=== PATIENT | male | born 1970 | race Caucasian/White ===

== ENCOUNTER 2018-02-09 12:28 | Outpatient (CLI) | payer OTHER ==
--- NOTE | 2018-02-10 16:28 | MRI Report ---
Reason: PAIN IN RIGHT KNEE Procedure Date: 02/09/2018 Accession Number: [id number] / [id number] Procedure: MRI - Knee RT W/O CPT Code: FULL RESULT: EXAM: RIGHT KNEE MRI WITHOUT CONTRAST. EXAM DATE: 02/09/2018 01:39 PM. CLINICAL HISTORY: Right knee pain. COMPARISON: None. TECHNIQUE: Multiplanar, multisequence T1-weighted and fluid-sensitive sequences of the knee without contrast. Other: None. FINDINGS: Bones: No fractures. Minimal tibiofemoral osteophytes are present. No marrow edema. Articular Cartilage: The patellofemoral and lateral compartment articular cartilage is intact. There is severe cartilage thinning from the medial compartment. Medial Meniscus: 2 parrot-beak tears are seen in the inner margin of the posterior horn of the medial meniscus. Lateral Meniscus: The lateral meniscus is intact. Cruciate Ligaments: The anterior and posterior cruciate ligaments are intact. Collateral Ligaments: The medial collateral and lateral collateral ligamentous structures are intact. Tendons: The quadriceps, patellar, semimembranosus, and popliteus tendons are unremarkable. Musculature: No edema or fatty atrophy. Other: No effusion. No popliteal cyst. No loose bodies. The medial and lateral retinacula are intact. Prepatellar subcutaneous edema is present. IMPRESSION: 1. Minimal osteoarthritis. 2. Two parrot-beak tears at the inner margin of the posterior horn of the medial meniscus. [facility] MUSCULOSKELETAL RADIOLOGY SECTION
== END 2018-02-09 12:29 | disposition home or self-care (01) ==
LOC: DI 12:28
PROVIDERS: ATTEND Family Medicine
DX: M17.11 Unilateral primary osteoarthritis, right knee (principal); S83.241A Other tear of medial meniscus, current injury, right knee, initial encounter

== ENCOUNTER 2019-08-02 09:49 | Emergency (ER) | payer OTHER ==
--- NOTE | 2019-08-02 10:00 | ED Physician Documentation ---
PD HPI HEADACHE - Stated complaint Stated Complaint: URIARTE - Chief complaint Chief Complaint: Neuro - History obtained from History obtained from: Patient - History of Present Illness Timing - onset: How many days ago (2) Timing - onset during: Light activity Timing - duration: Days (2) Timing - details: Gradual onset, Waxing and waning Worst headache ever?: No: Worst headache ever? Location: Front, Global Quality: Throbbing. No: Thunderclap, Stabbing Associated symptoms: Other (some feeling of chest pressure substernal yesterday and today, nonexertional. No CP now. Noted his BP to quite elevated at 210/130 today. Typically runs a little high at 150-180 when randomly checks it. lowest is around 130 systolic. No current meds for BP. Started Meloxicam a week ago for knee pain.). No: Fever, Nausea, Vomiting, Weakness, Numbness, Vision changes Contributing factors: Hypertension (states blood pressure is slightly high often when checks it (randomly at store or in doctors office, sometimes at home). Typically when well, it is 130-160 systolic, more often 150-160. Today had noted it much higher, but was having the throbbing headache.). No: Recent illness Similar symptoms before: Has not had sx before Recently seen: Clinic (seen for knee pain and Rx Meloxicam, which he started the day prior to onset of the headache. He had taken Meloxicam previously last year but ended use Jan 2019. Had taken Ibuprofen fairly regularly in the past couple months, so PMD went for the Mob again.) Review of Systems Constitutional: denies: Fever, Chills Eyes: denies: Loss of vision, Decreased vision, Photophobia Nose: denies: Rhinorrhea / runny nose, Congestion Throat: denies: Sore throat Respiratory: denies: Cough GI: reports: Nausea (with belching and heartburn the past couple days). denies: Vomiting, Diarrhea, Bloody / black stool Neurologic: reports: Generalized weakness, Headache. denies: Focal weakness, Numbness, Altered mental status, Head injury PD PAST MEDICAL HISTORY - Past Medical History Cardiovascular: None Respiratory: None Endocrine/Autoimmune: None - Past Surgical History Past Surgical History: Yes - Present Medications Home Medications: Ambulatory Orders Medication Instructions Recorded Confirmed Hydrocodone/Acetaminophen [[place] 1 each PO Q6H PRN #15 tablet 02/16/15 5-325 Tablet] Ibuprofen 600 mg PO TID #15 tablet 02/16/15 Hydrocodone/Acetaminophen [[place] 1 each PO Q6H PRN #15 tablet 08/02/19 5-325 Tablet] Naproxen 375 mg PO BID #20 tablet 08/02/19 dexAMETHasone [Decadron] 4 mg PO DAILY #5 tablet 08/02/19 - Allergies Allergies/Adverse Reactions: Allergies Allergy/AdvReac Type Severity Reaction Status Date / Time No Known Drug Allergies Allergy Verified 08/02/19 09:52 - Social History Does the pt smoke?: No Smoking Status: Current every day smoker Does the pt drink ETOH?: No Does the pt have substance abuse?: No - Immunizations Immunizations are current?: Yes - POLST Patient has POLST: No PD ED PE NORMAL - Vitals Vital signs reviewed: Yes - General General: Alert and oriented X 3, No acute distress (slightly uncomfrtable due to headache.), Well developed/nourished - HEENT HEENT: Atraumatic, PERRL, EOMI (fundi appear normal), Pharynx benign - Neck Neck: Supple, no meningeal sign, No adenopathy - Cardiac Cardiac: RRR, No murmur - Respiratory Respiratory: Clear bilaterally - Abdomen Abdomen: Soft, Non tender - Derm Derm: Normal color, Warm and dry - Extremities Extremities: No deformity, No tenderness to palpate, No edema, No calf tenderness / cord - Neuro Neuro: Alert and oriented X 3, teletypesetter 2-12 intact, No motor deficit, No sensory deficit, Normal speech, Other Eye Opening: Spontaneous Motor: Obeys Commands Verbal: Oriented GCS Score: 15 Results - Vitals Vitals: Vital Signs - 24 hr 08/02/19 08/02/19 08/02/19 09:53 12:00 14:23 Temperature 36.7 C Heart Rate 72 65 62 Respiratory 18 22 20 Rate Blood Pressure 165/108 H 160/96 H 120/91 H O2 Saturation 98 98 96 Oxygen O2 Source Room air - EKG (time done) 10:00 Rate: Rate (enter#) (66) Rhythm: NSR [place]: Normal Intervals: Normal ME QRS: Normal Ischemia: Normal ST segments. No: ST elevation c/w ischemia, ST depression - Labs Labs: Laboratory Tests 05/08/02/19 08/02/19 10:45 10:45 10:45 WBC 12.4 H RBC 5.04 Hgb 16.4 Hct 47.7 MCV 94.6 H MCH 32.5 H MCHC 34.4 RDW 11.8 L Plt Count 206 MPV 11.8 H Neut # (Auto) 9.3 H Lymph # (Auto) 1.8 Lares # (Auto) 1.2 H Eos # (Auto) 0.0 Baso # (Auto) 0.0 Absolute Nucleated RBC 0.00 Nucleated RBC % 0.0 Sodium 136 Potassium 3.7 Chloride 103 Carbon Dioxide 25 Anion Gap 8.0 BUN 18 Creatinine 0.9 Estimated GFR (MDRD) 90 Glucose 146 H Calcium 9.0 Total Bilirubin 0.8 AST 27 ALT 70 H Alkaline Phosphatase 61 Troponin I High Sens 4.2 B-Natriuretic Peptide Total Protein 7.3 Albumin 4.1 Globulin 3.2 Albumin/Globulin Ratio 1.3 Lipase 31 08/02/19 10:45 WBC RBC Hgb Hct MCV MCH MCHC RDW Plt Count MPV Neut # (Auto) Lymph # (Auto) Lares # (Auto) Eos # (Auto) Baso # (Auto) Absolute Nucleated RBC Nucleated RBC % Sodium Potassium Chloride Carbon Dioxide Anion Gap BUN Creatinine Estimated GFR (MDRD) Glucose Calcium Total Bilirubin AST ALT Alkaline Phosphatase Troponin I High Sens B-Natriuretic Peptide 48 Total Protein Albumin Globulin Albumin/Globulin Ratio Lipase - Rads (name of study) chest xray Radiology: Prelim report reviewed (normal), See rad report head CT Radiology: Prelim report reviewed (no acute process), See rad report PD MEDICAL DECISION MAKING - ED course Complexity details: considered differential (initially thinking tension headache or such or hypertensive, but BP decreased with just pain meds and headache persists. Epocrates lists headache and edema as potential serious side effects of Meloxicam, so did CT to ensure no signs of edema, enlarged ventricles (pseudotumor cerebri), or other headache causes. This was normal. Otherwise normal exam and workup, so presume the headache is side effect of the Mobic, given the onset a day after starting the med. Presume it will taper over few days. The chest pain I think was reflux and not cardiac. ), d/w patient Departure - Departure Disposition: 01 Home, Self Care Clinical Impression: Chest discomfort, Side effect of medication, Severe headache Condition: Stable Record reviewed to determine appropriate education?: Yes Instructions: ED Cephalgia Unspecified Follow-Up: BRENDA GRAJEDA DO [Primary Care Provider] - Prescriptions: dexAMETHasone [Decadron] 4 mg PO DAILY #5 tablet Hydrocodone/Acetaminophen [[place] 5-325 Tablet] 1 each PO Q6H PRN #15 tablet PRN Reason: Pain Naproxen 375 mg PO BID #20 tablet Comments: Lacking another good reason for the headache, I would associate it timing ordoñez with the start of your meloxicam. A medication reference called HippocrThink2 does list it as a is more serious side effect potentially to the meloxicam. Stop the meloxicam. Use Tylenol if needed for pains instead. We can add Decadron steroid anti-inflammatory for a few days as well to help with your arthritis kind of pain and decrease the side effects of the headache. Add Tylenol or hydrocodone if needed for headache. No signs of heart failure or heart injury based on your blood tests and EKG. This might of been some heartburn related to the meloxicam as well. Use antacid if needed. If you are feeling improved over the next several days, then you could start a different anti-inflammatory such as naproxen. Follow-up with your primary care if not improved over the next 2 to 3 days and return sooner if worsening. Discharge Date/Time: 08/02/19 14:29
[2019-08-02] MEDS ORDERED: ACETAMINOPHEN 325 MG TABLET PO STA (10:35)
[2019-08-02] MEDS ORDERED: KETOROLAC 30 MG/ML VIAL IVP STA (10:35)
[2019-08-02 11:02] LABS: BASOPHILS % (AUTO) 0.2 %; EOSINOPHILS % (AUTO) 0.2 %; HGB - HEMOGLOBIN 16.4 g/dL (14.0-18.0); LYMPHOCYTES # (AUTO) 1.8 10^3/uL (1.5-3.5); LYMPHOCYTES % (AUTO) 14.6 %; MEAN CORPUSCULAR HEMOGLOBIN 32.5 pg (27.0-31.0); MEAN CORPUSCULAR HGB CONC 34.4 g/dL (32.0-36.0); MEAN CORPUSCULAR VOLUME 94.6 fL (80.0-94.0); MEAN PLATELET VOLUME 11.8 fL (7.4-11.4); MONOCYTES # (AUTO) 1.2 10^3/uL (0.0-1.0); MONOCYTES % (AUTO) 9.3 %; NEUTROPHILS # (AUTO) 9.3 10^3/uL (1.5-6.6); NEUTROPHILS % (AUTO) 75.1 %; PLT - PLATELET COUNT 206 10^3/uL (130-450); RED BLOOD COUNT 5.04 10^6/uL (4.70-6.10); RED CELL DISTRIBUTION WIDTH 11.8 % (12.0-15.0); WHITE BLOOD COUNT 12.4 x10^3/uL (4.8-10.8)
[2019-08-02 11:28] LABS: ALBUMIN 4.1 g/dL (3.2-5.5); ALBUMIN/GLOBULIN RATIO 1.3 (1.0-2.2); BILIRUBIN,TOTAL 0.8 mg/dL (0.2-1.0); CREATININE 0.9 mg/dL (0.6-1.2); TOTAL PROTEIN 7.3 g/dL (6.7-8.2)
--- NOTE | 2019-08-02 11:30 | XRAY Report ---
Reason: Chest Pain Procedure Date: 08/02/2019 Accession Number: [id number] / [id number] Procedure: XR - Chest 1 View X-Ray CPT Code: 59691 Final Report FULL RESULT: EXAM: CHEST RADIOGRAPHY EXAM DATE: 08/02/2019 10:57 AM. CLINICAL HISTORY: Chest Pain. COMPARISON: None. TECHNIQUE: 1 view. FINDINGS: Lungs/Pleura: No focal opacities evident. No pleural effusion. No pneumothorax. Mediastinum: Within exam limitations, the cardiomediastinal contour is normal. Other: Variant azygos fissure anatomy is seen. IMPRESSION: No acute cardiopulmonary abnormality demonstrated. [facility]
[2019-08-02] MEDS ORDERED: HYDROmorphone 1 MG/ML CARPUJECT IVP STA ×2 (12:00→13:56)
--- NOTE | 2019-08-02 13:34 | CT Report ---
Reason: throbbing headache for 2 days Procedure Date: 08/02/2019 Accession Number: [id number] / [id number] Procedure: CT - HEAD WO CPT Code: Final Report FULL RESULT: EXAM: CT HEAD EXAM DATE: 08/02/2019 12:47 PM. CLINICAL HISTORY: Throbbing headache for 2 days. COMPARISON: None. TECHNIQUE: Multiaxial CT images were obtained from the foramen magnum to the vertex. Reformats: Sagittal and coronal. IV contrast: None. In accordance with CT protocol optimization, one or more of the following dose reduction techniques were utilized for this exam: automated exposure control, adjustment of mA and/or KV based on patient size, or use of iterative reconstructive technique. FINDINGS: Parenchyma: No intraparenchymal hemorrhage. No evidence of mass, midline shift, or CT findings of acute infarction. Meadows-white differentiation is distinct. Extraaxial Spaces: Normal for age. No subdural or epidural collections identified. Ventricles: Normal in size and position. Sinuses and Orbits: Imaged paranasal sinuses, orbits, and mastoids show no significant abnormality. Bones: No evidence of fracture or calvarial defect. Other: None. IMPRESSION: Normal head CT. [facility]
[2019-08-02] MEDS ORDERED: DEXAMETHASONE 10 MG/ML VIAL IVP STA (13:56)
[2019-08-02 14:24] VITALS: BP 120/91
== END 2019-08-02 14:29 | disposition home or self-care (01) ==
LOC: ED 09:49
DX: R07.89 Other chest pain (principal); R51 Headache; T39.395A Adverse effect of other nonsteroidal anti-inflammatory drugs [NSAID], initial encounter; F17.200 Nicotine dependence, unspecified, uncomplicated
CPT/HCPCS: 36415; 70450; 71045; 80053; 83690; 83880; 84484; 85025; 93005; 96374; 96375; 99284; A9270; J1170

== ENCOUNTER 2019-11-11 07:29 | Day surgery (SDC) | payer OTHER ==
[2019-11-11] MEDS ORDERED: CEFAZOLIN SODIUM IN 0.9 % NACL 2 GM/100 ML BAG IV ONE (07:34)
[2019-11-11] MEDS ORDERED: LACTATED RINGERS 1,000 ML IV ONE ×2 (07:54→10:22)
[2019-11-11] MEDS ORDERED: EPINEPHrine 1 MG/ML AMP ONE (08:11)
[2019-11-11] MEDS ORDERED: BUPIVACAINE 0.25% PF 30 ML VIAL ONE (08:11)
[2019-11-11] MEDS ORDERED: ONDANSETRON 4 MG/2 ML VIAL IVP ONE (08:15)
[2019-11-11] MEDS ORDERED: DEXAMETHASONE 4 MG/ML VIAL IVP ONE (08:15)
[2019-11-11] MEDS ORDERED: PROPOFOL 200 MG/20 ML VIAL IVP ONE (08:15)
[2019-11-11] MEDS ORDERED: MIDAZOLAM 2 MG/2 ML VIAL IVP ONE (08:15)
[2019-11-11] MEDS ORDERED: fentaNYL 100 MCG/2 ML VIAL IVP ONE (08:15)
[2019-11-11] MEDS ORDERED: LIDOCAINE-MPF 2% 5 ML VIAL IM ONE (08:15)
--- NOTE | 2019-11-11 08:19 | ANESTHESIA ---
Pre-Anesthesia VS, & Labs - Diagnosis Right knee meniscus tear - Procedure right knee arthroscopy, meniscus debridement Vital Signs: Temp Pulse Resp BP Pulse Ox 36.3 C L 82 16 133/104 H 97 11/11/19 07:34 11/11/19 07:34 11/11/19 07:34 11/11/19 07:34 11/11/19 07:34 Height 5 ft 10 in Weight (kg) 112.94 kg Body Mass Index 36.6 - NPO >8 hours - Lab Results Lab results reviewed: Yes Home Medications and Allergies Home Medications: Ambulatory Orders Diclofenac Sodium [Voltaren] 100 gm TP 10/15/19 Fluticasone [Flonase] 1 sprays NAVARRO DAILY 10/15/19 Loratadine [Claritin] 10 mg PO DAILY 10/15/19 Omeprazole 20 mg PO 10/15/19 Diclofenac Sodium [Voltaren] 100 gm TP 10/15/19 Fluticasone [Flonase] 1 sprays NAVARRO DAILY 10/15/19 Loratadine [Claritin] 10 mg PO DAILY 10/15/19 Omeprazole 20 mg PO 10/15/19 Allergies/Adverse Reactions: Allergies Allergy/AdvReac Type Severity Reaction Status Date / Time meloxicam [From Mobic] AdvReac Intermediate Unknown Verified 10/15/19 13:16 Anes History & Medical History - Anesthetic History Family history of Anesthesia Complications: Denies Family history of Malignant Hyperthermia: Denies - Medical History Cardiovascular: reports: None Pulmonary: reports: None, Sleep apnea (probable BERNY) Gastrointestinal: reports: GERD, Other Urinary: reports: None Musculoskeletal: reports: Other Endocrine/Autoimmune: reports: None Skin: reports: None Smoking Status: Light tobacco smoker Exam General: Alert, Oriented x3, Cooperative, No acute distress Dental: Poor dentition (multiple chipped) Mouth Openin Fingerbreadth Neck Mobility: Normal Mallampati classification: II Respiratory: Lungs clear, Normal breath sounds, No respiratory distress, No accessory muscle use Cardiovascular: Regular rate, Normal S1, Normal S2, No murmurs Plan Anesthesia Type: General, Adductor Block (discussed PNB in event of uncontrolled pain. Patient agreeable if needed post op) Consent for Procedure(s) Verified and Reviewed: Yes Code Status: Attempt Resuscitation ASA classification: 2-Mild systemic disease Is this case an emergency?: No
[2019-11-11] MEDS ORDERED: METOCLOPRAMIDE 10 MG/2 ML VIAL IVP PRN (08:20)
[2019-11-11] MEDS ORDERED: ATROPINE ABBOJECT 1 MG/10 ML SYRINGE IVP PRN (08:20)
[2019-11-11] MEDS ORDERED: MORPHINE 2 MG/ML CARPUJECT IVP PRN (08:20)
[2019-11-11] MEDS ORDERED: NALOXONE 0.4 MG/ML VIAL IVP PRN (08:20)
[2019-11-11] MEDS ORDERED: ePHEDrine 50 MG/ML VIAL IVP PRN (08:20)
[2019-11-11] MEDS ORDERED: ONDANSETRON 4 MG/2 ML VIAL IVP PRN ×2 (08:20→09:54)
[2019-11-11] MEDS ORDERED: HYDROmorphone 0.5 MG/0.5 ML SYRINGE IVP PRN (08:20)
[2019-11-11] MEDS ORDERED: BUPIVACAINE 0.25% PF 30 ML VIAL SUBQ ONE (08:59)
[2019-11-11] MEDS ORDERED: LACTATED RINGERS 1,000 ML IV SCH (09:00)
[2019-11-11] MEDS ORDERED: EPINEPHrine 1 MG/ML AMP IR ONE (09:00)
[2019-11-11] MEDS ORDERED: LACTATED RINGERS 300 ML IV ONE (09:52)
[2019-11-11] MEDS ORDERED: oxyCODONE 5 MG TABLET PO PRN (09:54)
[2019-11-11] MEDS: fentaNYL 100 MCG/2 ML VIAL IVP PRN ×2 (09:55→10:05)
[2019-11-11] MEDS ORDERED: fentaNYL 100 MCG/2 ML VIAL ONE (10:04)
--- NOTE | 2019-11-11 10:04 | OPERATIVE REPORT ---
Operative Report - Other Other Information/Narrative: Date of Surgery: 11 November 2019 Pre-Op Diagnosis: Right knee medial meniscus tear. Right knee arthritis Procedure: Right knee arthroscopic chondroplasty of the trochlea, medial femoral condyle, medial tibial plateau, lateral tibial plateau. Arthroscopic medial meniscus debridement Postop Diagnosis: Same Primary Surgeon: Eladio Lu Secondary Surgeon: Nicholas Benjamin Complications: None Tourniquet Time: 48 minutes at 250 mmHg EBL: 5 mL Indication For Surgery: 49-year-old male with many years of aching medial knee pain that acutely worsened over the last year and a half after an injury. He has sharp medial sided pain that is activity and position dependent. An MRI showed a large meniscus tear as well as degenerative changes. We discussed that his pain may be associated with a meniscus tear as well as arthritis. The meniscus tear itself may be secondary to his arthritis. We discussed nonoperative and operative treatment strategies and after failing nonoperative treatment he elected for surgery to help improve his symptoms.. The risks, benefits, and alternatives were discussed. Risks include pain, bleeding, infection, damage to nearby structures and cartilage, lack of symptom relief, need for further surgery, DVT, PE, stroke, and . Written consent was obtained. Examination Under Anesthesia: ROM equal to the contralateral side. Small effusion is present. Stable dial at 30 & 90 degrees. Stable to varus and valgus stressing at 0 & 30 degrees. Normal Edgard. Normal Pivot shift. Slight mechanical sensation with range of motion Arthroscopic Findings: Loose bodies -none Synovium -injected and exuberant fat pad Patella cartilage -slightly mottled but no significant cartilage lesions Trochlear cartilage -3 to 5 mm wide by 15 mm long full-thickness lesion centrally Medial femoral condyle cartilage -the majority of the condyle had grade 2-3 changes with some focal grade 4 changes of the large sections. Unstable flaps were debrided. Medial tibial plateau cartilage -grade 2-3 changes over large portions of the plateau. Unstable flaps were debrided Medial meniscus -root was intact. Complex tear of the posterior horn and body with a radial component that went back near the capsule at the junction of the p osterior horn of the body. The anterior horn is unaffected. This was debrided back to a stable base with smooth transitions Anterior cruciate ligament -normal Posterior cruciate ligament -normal Lateral femoral condyle cartilage -normal Lateral tibial plateau cartilage -linear fissuring with softening but largely intact. A small unstable portion was debrided Lateral meniscus -normal Procedure in Detail: The patient was met in the pre-operative hold area on the day of the procedure. The operative extremity was signed and questions were answered. The patient was brought to the operating room and a general anesthetic was administered. Supine position was used and bony prominences were padded. An examination under anesthesia was performed. Standard prepping and draping was performed. A time out confirmed patient identification, laterality, procedure, allergies, antibiotics, and images. An Esmarch was used to exsanguinate the limb and the tourniquet was elevated to 250 mmHg. A standard diagnostic arthroscopy of the knee was performed through anterolateral and anteromedial portal sites. The anteromedial portal was created under direct visualization after localizing with a spinal needle. The findings can be found above. I then proceeded to use a straight biter to debride back unstable flaps of cartilage. A shaver was then used to smooth the transitions. Chondroplasty was performed in the patellofemoral joint as well as both the medial and lateral yadi-joints. I then used a biter to debride all unstable flaps of the meniscus back to stable basis. The shaver was then used to smooth all transitions. I viewed from both the medial and lateral portal site and worked from both the medial and lateral portal site. Satisfied with the debridement final images were taken. Final images were taken and all arthroscopic fluid and instruments were removed from the knee. The incisions were closed with buried monocryl sutures. Steri strips were applied. 20 cc of 0.25% Marcaine without epinephrine was injected near the portal sites. A sterile dressing and compression stocking was placed. The patient was awakened and transferred to recovery in stable condition.
[2019-11-11] MEDS ORDERED: HYDROmorphone 0.5 MG/0.5 ML SYRINGE ONE (10:14)
[2019-11-11] MEDS ORDERED: ONDANSETRON 4 MG/2 ML VIAL ONE (10:47)
[2019-11-11] MEDS ORDERED: oxyCODONE 5 MG TABLET ONE (11:07)
--- NOTE | 2019-11-11 11:21 | ANESTHESIA POST OP EVALUATION ---
Anesthesia Post Eval - Post Anesthesia Eval Vitals: Last Vital Signs Temp 36.7 C 11/11/19 11:00 Pulse 77 11/11/19 11:00 Resp 18 11/11/19 11:00 BP 128/84 H 11/11/19 11:00 Pulse Ox 98 11/11/19 11:00 CV Function Including HR & BP: positive: Stable Pain Control: positive: Satisfactory Nausea & Vomiting: positive: Negative Mental Status: positive: Baseline Respiratory Status: Airway Patent Hydration Status: Satisfactory Anesthesia Complications: positive: None
[2019-11-11 11:57] VITALS: BP 130/80
== END 2019-11-11 07:30 | disposition home or self-care (01) ==
LOC: SDS 07:29
PROVIDERS: ATTEND Orthopaedic Surgery
DX: M23.221 Derangement of posterior horn of medial meniscus due to old tear or injury, right knee (principal); M94.261 Chondromalacia, right knee; K21.9 Gastro-esophageal reflux disease without esophagitis; G47.30 Sleep apnea, unspecified; F17.200 Nicotine dependence, unspecified, uncomplicated; M17.11 Unilateral primary osteoarthritis, right knee

== ENCOUNTER 2020-04-20 06:20 | Emergency (ER) | payer OTHER ==
[2020-04-20] MEDS ORDERED: KETOROLAC 30 MG/ML VIAL IVP STA (06:56)
--- NOTE | 2020-04-20 07:17 | ED Physician Documentation ---
PD HPI URI - Stated complaint Stated Complaint: NAUSEA,LIGHT HEADED - Chief complaint Chief Complaint: Neuro - History obtained from History obtained from: Patient - History of Present Illness Timing - onset: How many days ago (4) Timing duration: Days (4) Timing details: Gradual onset, Still present Associated symptoms: Fever (mild, up to 100.5, varying over the few days.), Sore throat, Dry cough, Other (frontal/general headache.). No: Productive cough, Dyspnea, NVD Contributing factors: Other (He had been feeling ill for several days. He took his blood pressure today at home and noticed it was elevated and so was concerned.). No: Sick contact (His and daughter at home are feeling well without any similar symptoms. They do have a propane space heater at home but it is next to a carbon monoxide monitor that has not alarmed and his family members do not have similar symptoms.) Improves by: Medication (tylenol) Worsened by: Activity Recently seen: Clinic (He states he had a Covid test yesterday that was negative which she had done because of his viral type symptoms.) Review of Systems Constitutional: reports: Fever, Chills, Myalgias Nose: reports: Congestion. denies: Rhinorrhea / runny nose Throat: reports: Sore throat Cardiac: denies: Chest pain / pressure Respiratory: reports: Cough (mild nonproductive). denies: Dyspnea, Wheezing GI: reports: Nausea. denies: Abdominal Pain, Vomiting, Diarrhea Musculoskeletal: denies: Extremity swelling Neurologic: reports: Generalized weakness, Headache. denies: Focal weakness, Near syncope, Confused, Altered mental status PD PAST MEDICAL HISTORY - Past Medical History Cardiovascular: None (He has had elevated blood pressure in the past related to NSAID use of meloxicam. This improved once off the medicine. He has not been on any blood pressure medicines per se.) Respiratory: None, Sleep apnea (probable BERNY) Endocrine/Autoimmune: None GI: GERD, Other : None HEENT: None Psych: None Musculoskeletal: Other Derm: None - Past Surgical History Past Surgical History: Yes - Present Medications Home Medications: Ambulatory Orders Medication Instructions Recorded Confirmed Ibuprofen 600 mg PO TID #15 tablet 02/16/15 Cetirizine [ZyrTEC] 10 mg PO DAILY #15 tab 04/20/20 HYDROcod/ACETAM 5/325 [[place] 5/325] 1 ea PO Q6H PRN #18 tab 04/20/20 cephALEXin [Keflex] 500 mg PO TID #20 cap 04/20/20 dexAMETHasone [Decadron] 4 mg PO DAILY #5 tab 04/20/20 traMADol [Ultram] 100 mg PO Q6H 04/20/20 04/20/20 - Allergies Allergies/Adverse Reactions: Allergies Allergy/AdvReac Type Severity Reaction Status Date / Time meloxicam [From Mobic] AdvReac Intermediate Unknown Verified 10/15/19 13:16 - Living Situation Living Situation: reports: With spouse/s.o. Living Arrangement: reports: At home - Social History Does the pt smoke?: No Smoking Status: Light tobacco smoker Does the pt drink ETOH?: No Does the pt have substance abuse?: No - Immunizations Immunizations are current?: Yes - POLST Patient has POLST: No PD ED PE NORMAL - Vitals Vital signs reviewed: Yes - General General: Alert and oriented X 3, No acute distress, Well developed/nourished - HEENT HEENT: Moist mucous membranes, Pharynx benign - Neck Neck: Supple, no meningeal sign, No adenopathy - Cardiac Cardiac: RRR, No murmur - Respiratory Respiratory: Clear bilaterally - Abdomen Abdomen: Soft, Non tender - Male Male : Deferred - Rectal Rectal: Deferred - Derm Derm: Normal color, Warm and dry - Extremities Extremities: Normal ROM s pain, No edema, No calf tenderness / cord, Other (left forearm with small waxy skinned lesion 1 cm on forearm. No purulence nor induration under. ) - Neuro Neuro: Alert and oriented X 3, No motor deficit, Normal speech Results - Vitals Vitals: Vital Signs - 24 hr 04/20/20 04/20/20 06:30 07:53 Temperature 36.9 C Heart Rate 81 70 Respiratory 18 18 Rate Blood Pressure 163/106 H 154/95 H O2 Saturation 96 97 Oxygen O2 Source Room air - Labs Labs: Laboratory Tests 04/20/20 04/20/20 04/20/20 07:28 07:28 07:28 WBC 5.4 RBC 5.08 Hgb 16.6 Hct 47.5 MCV 93.5 MCH 32.7 H MCHC 34.9 RDW 11.5 L Plt Count 167 MPV 11.4 Neut # (Auto) 3.0 Lymph # (Auto) 1.4 L [place] # (Auto) 0.7 Eos # (Auto) 0.3 Baso # (Auto) 0.0 Absolute Nucleated RBC 0.00 Nucleated RBC % 0.0 Sodium 142 Potassium 3.8 Chloride 98 L Carbon Dioxide 27 Anion Gap 17.0 H BUN 13 Creatinine 1.0 Estimated GFR (MDRD) 79 L Glucose 129 H Lactic Acid 2.0 Calcium 9.7 Total Bilirubin 0.9 AST 36 ALT 60 Alkaline Phosphatase 59 Total Protein 7.4 Albumin 4.1 Globulin 3.3 Albumin/Globulin Ratio 1.2 - Rads (name of study) chest xray Radiology: Prelim report reviewed (no infiltrates), See rad report head CT Radiology: Prelim report reviewed (no acute process intracranial; There is ethmoid sinusitis. ), See rad report PD MEDICAL DECISION MAKING - ED course Complexity details: reviewed results (Chest xray negative. head CT not showing any local lesions. There is sinusitis noted on report. ), re-evaluated patient (improving headache and BP. ), considered differential (He has viral illness type sympotms. States negative COVID test yesterday. Has headache and low fevers. Does not appear meningitic. Does not appear significantly ill. BP elevated but at level that seems more likely reactive to illness and not primarily causing headache. Can check CBC, CXR. ), d/w patient Departure - Departure Disposition: 01 Home, Self Care Clinical Impression: Acute sinusitis Qualifiers: Sinusitis location: ethmoidal Recurrence: non-recurrent Qualified Code(s): J01.20 - Acute ethmoidal sinusitis, unspecified URI (upper respiratory infection) Qualifiers: Pharyngitis/tonsillitis etiology: unspecified etiology Condition: Stable Record reviewed to determine appropriate education?: Yes Instructions: ED Sinusitis Abx Tx Follow-Up: BRENDA GRAJEDA DO [Primary Care Provider] - Prescriptions: dexAMETHasone [Decadron] 4 mg PO DAILY #5 tab cephALEXin [Keflex] 500 mg PO TID #20 cap HYDROcod/ACETAM 5/325 [[place] 5/325] 1 ea PO Q6H PRN #18 tab PRN Reason: Pain Cetirizine [ZyrTEC] 10 mg PO DAILY #15 tab Comments: Your blood count is good. Your electrolytes and blood sugar are normal without any significant findings. Your CT scan showed no intracranial process but they did note ethmoidal sinusitis. Your chest x-ray does not show any pneumonia. At this point presume some viral type illness may have been initial but now it seems to be likely acute sinusitis for your symptoms. Cephalexin antibiotic as directed for the infection. Decadron steroid daily for inflammation through the sinuses. Stay well-hydrated. Cetirizine antihistamine to help with any congestion. Add Tylenol or hydrocodone as needed for headache and pain. However dissipate improvement over the next several days. Rest today and tomorrow as needed. Recheck if not improved well over the next several days and resolved by 4 to 5 days or so. Forms: Activity restrictions
--- NOTE | 2020-04-20 07:29 | CT Report ---
PROCEDURE: HEAD WO INDICATIONS: headache and feverish for 4 days TECHNIQUE: Noncontrast 4.5 mm thick angled axial sections acquired from the foramen magnum to the vertex. For r adiation dose reduction, the following was used: automated exposure control, adjustment of mA and/or kV according to patient size. COMPARISON: None. FINDINGS: Image quality: Excellent. CSF spaces: Basal cisterns are patent. No extra-axial fluid collections. Ventricles are normal in size and shape. Brain: No midline shift. No intracranial masses or hemorrhage. Meadows-white matter interface is norm al. Skull and face: Calvarium and visualized facial bones are intact, without suspicious lesions. Sinuses: Visualized sinuses and mastoids are clear. IMPRESSION: No acute intracranial disease process. Reviewed by: Christen Wilson MD, PhD on 04/20/2020 7:28 AM PST Approved by: Christen Wilson MD, PhD on 04/20/2020 7:28 AM PST Station ID: [id number]
[2020-04-20 07:52] LABS: BASOPHILS % (AUTO) 0.6 %; EOSINOPHILS # (AUTO) 0.3 10^3/uL (0.0-0.7); EOSINOPHILS % (AUTO) 4.7 %; HGB - HEMOGLOBIN 16.6 g/dL (14.0-18.0); LYMPHOCYTES # (AUTO) 1.4 10^3/uL (1.5-3.5); LYMPHOCYTES % (AUTO) 26.5 %; MEAN CORPUSCULAR HEMOGLOBIN 32.7 pg (27.0-31.0); MEAN CORPUSCULAR HGB CONC 34.9 g/dL (32.0-36.0); MEAN CORPUSCULAR VOLUME 93.5 fL (80.0-94.0); MEAN PLATELET VOLUME 11.4 fL (7.4-11.4); MONOCYTES # (AUTO) 0.7 10^3/uL (0.0-1.0); MONOCYTES % (AUTO) 12.1 %; NEUTROPHILS % (AUTO) 55.9 %; PLT - PLATELET COUNT 167 10^3/uL (130-450); RED BLOOD COUNT 5.08 10^6/uL (4.70-6.10); RED CELL DISTRIBUTION WIDTH 11.5 % (12.0-15.0); WHITE BLOOD COUNT 5.4 x10^3/uL (4.8-10.8)
[2020-04-20 08:00] LABS: ALBUMIN 4.1 g/dL (3.2-5.5); ALBUMIN/GLOBULIN RATIO 1.2 (1.0-2.2); BILIRUBIN,TOTAL 0.9 mg/dL (0.2-1.0); CALCIUM 9.7 mg/dL (8.5-10.3); TOTAL PROTEIN 7.4 g/dL (6.7-8.2)
[2020-04-20] MEDS ORDERED: cephALEXin 250 MG CAPSULE PO STA (08:01)
[2020-04-20] MEDS ORDERED: DEXAMETHASONE 10 MG/ML VIAL IVP STA (08:01)
[2020-04-20] MEDS ORDERED: HYDROmorphone 1 MG/ML CARPUJECT IVP STA (08:23)
[2020-04-20 08:42] VITALS: BP 118/76
--- NOTE | 2020-04-20 09:11 | XRAY Report ---
PROCEDURE: Chest 1 View X-Ray INDICATIONS: congested and cough; feverish/achy TECHNIQUE: One view of the chest was acquired. COMPARISON: 08/02/2019. FINDINGS: Surgical changes and devices: None. Lungs and pleura: No pleural effusions or pneumothorax. Lungs are clear. Mediastinum: Mediastinal contours appear normal. Heart size is normal. Bones and chest wall: No suspicious bony lesions. Overlying soft tissues appear unremarkable. IMPRESSION: 1. No acute cardiopulmonary disease. Reviewed by: Saeed Washington MD on 04/20/2020 9:10 AM [facility] Approved by: Saeed Washington MD on 04/20/2020 9:10 AM [facility] Station ID: [id number]
== END 2020-04-20 08:51 | disposition home or self-care (01) ==
LOC: ED 06:20
DX: J01.20 Acute ethmoidal sinusitis, unspecified (principal); J06.9 Acute upper respiratory infection, unspecified
CPT/HCPCS: 36415; 70450; 71045; 80053; 83605; 85025; 96374; 96375; 99284; A9270; J1170

== ENCOUNTER 2020-07-22 06:21 | Emergency (ER) | payer OTHER ==
--- NOTE | 2020-07-22 06:51 | ED Physician Documentation ---
PD HPI HEADACHE - Stated complaint Stated Complaint: HEADACHE - Chief complaint Chief Complaint: Neuro - History obtained from History obtained from: Patient - History of Present Illness Timing - onset: How many days ago (5) Timing - onset during: Rest Timing - duration: Days (5) Timing - details: Gradual onset, Still present Location: Global Quality: Stabbing Associated symptoms: No: Fever, Stiff neck, Nausea, Vomiting, Weakness, Numbness, Syncope, Seizure, Eye pain, Vision changes Improved by: Rest Worsened by: Moving Contributing factors: No: Anticoagulated Similar symptoms before: Diagnosis (sinus infection) Recently seen: Emergency Dept - Additional information Additional information: 50-year-old male with a headache for the past several days has stopped taking his medications and has stopped his caffeine. He continues to have the headache and he feels that he is hydrating adequately. He previously had sinusitis associated with headache and this resolved in April. Review of Systems Constitutional: denies: Fever Eyes: denies: Decreased vision Ears: denies: Ear pain Nose: denies: Rhinorrhea / runny nose, Congestion Throat: denies: Sore throat Cardiac: denies: Chest pain / pressure, Palpitations Respiratory: denies: Dyspnea, Cough GI: denies: Abdominal Pain, Nausea, Vomiting, Constipation, Diarrhea : denies: Dysuria, Frequency PD PAST MEDICAL HISTORY - Past Medical History Past Medical History: Yes Cardiovascular: None Respiratory: Sleep apnea Endocrine/Autoimmune: None GI: GERD, Other : None HEENT: None Psych: None Musculoskeletal: Other Derm: None - Past Surgical History Past Surgical History: Yes Ortho: Knee replacement - Present Medications Home Medications: Ambulatory Orders Medication Instructions Recorded Confirmed Ibuprofen 600 mg PO TID #15 tablet 02/16/15 07/22/20 Cetirizine [ZyrTEC] 10 mg PO DAILY #15 tab 04/20/20 07/22/20 HYDROcod/ACETAM 5/325 [[place] 5/325] 1 ea PO Q6H PRN #18 tab 04/20/20 07/22/20 traMADol [Ultram] 100 mg PO Q6H 04/20/20 07/22/20 - Allergies Allergies/Adverse Reactions: Allergies Allergy/AdvReac Type Severity Reaction Status Date / Time meloxicam [From [facility]] AdvReac Intermediate Unknown Verified 07/22/20 06:46 - Social History Does the pt smoke?: No Smoking Status: Never smoker Does the pt drink ETOH?: No Does the pt have substance abuse?: No - Immunizations Immunizations are current?: Yes - POLST Patient has POLST: No PD ED PE NORMAL - Vitals Vital signs reviewed: Yes (Hypertensive) - General General: Alert and oriented X 3, No acute distress, Well developed/nourished - HEENT HEENT: Atraumatic, PERRL, EOMI, Ears normal, Pharynx benign, Dentition benign, Other (Dry mucous membranes) - Neck Neck: Supple, no meningeal sign, No bony TTP - Cardiac Cardiac: RRR, No murmur - Respiratory Respiratory: No respiratory distress, Clear bilaterally - Abdomen Abdomen: Soft, Non tender - Back Back: No CVA TTP, No spinal TTP - Derm Derm: Normal color, Warm and dry, No rash - Extremities Extremities: No deformity, No edema - Neuro Neuro: Alert and oriented X 3, 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, No motor deficit, No sensory deficit, Normal speech Eye Opening: Spontaneous Motor: Obeys Commands Verbal: Oriented GCS Score: 15 - Psych Psych: Normal mood, Normal affect Results - Vitals Vitals: Vital Signs - 24 hr 07/22/20 07/22/20 07/22/20 06:37 08:00 09:58 Temperature 36.9 C 35.9 C L Heart Rate 73 76 64 Respiratory 18 18 20 Rate Blood Pressure 128/94 H 123/91 H 141/98 H O2 Saturation 97 96 98 Oxygen O2 Source Room air - Labs Labs: Laboratory Tests 07/22/20 07/22/20 07/22/20 08:45 08:45 08:45 WBC 5.7 RBC 5.00 Hgb 16.7 Hct 47.3 MCV 94.6 H MCH 33.4 H MCHC 35.3 RDW 11.7 L Plt Count 176 MPV 11.7 H Neut # (Auto) 3.5 Lymph # (Auto) 1.4 L [place] # (Auto) 0.6 Eos # (Auto) 0.2 Baso # (Auto) 0.0 Absolute Nucleated RBC 0.00 Nucleated RBC % 0.0 Sodium 138 Potassium 4.5 Chloride 105 Carbon Dioxide 26 Anion Gap 7.0 BUN 10 Creatinine 0.8 Estimated GFR (MDRD) 102 Glucose 109 H Estimat Average Glucose 111 H Hemoglobin A1c % 5.5 Calcium 9.4 Total Bilirubin 0.8 AST 36 ALT 72 H Alkaline Phosphatase 62 Total Protein 7.5 Albumin 4.3 Globulin 3.2 Albumin/Globulin Ratio 1.3 Lipase 31 Procedures - IVC sono (time) 0655 Bedside IVC sono: IVC measures (cm) (1.12), IVC collapsed c insp (cm) (complete), Dehydration (est 1-2 liter deficit) PD MEDICAL DECISION MAKING - ED course Complexity details: reviewed old records, reviewed results, re-evaluated patient, considered differential, d/w patient ED course: 50-year-old male being evaluated for headache is found to be dehydrated on interrogation the inferior vena cava and he reports polyuria polydipsia. His blood sugar is only 126. We attempted to start an IV line on this patient and this failed a number of times I have I personally placed a 20-gauge IV in the right AC with ultrasound guidance and the patient received 200 mL of fluid. The IV infiltrated and this was discontinued. I suspected his headache may be due to diabetes and after receiving his blood work I am not concerned of this and his level of dehydration is not profound. He has previously been treated for sinusitis which he felt helped with his headache. He stopped taking all of his medications 2 days ago. Departure - Departure Disposition: 01 Home, Self Care Clinical Impression: Severe headache Condition: Stable Instructions: ED Cephalgia Unspecified Follow-Up: BRENDA GRAJEDA DO [Primary Care Provider] - Discharge Date/Time: 07/22/20 10:05
[2020-07-22] MEDS ORDERED: SODIUM CHLORIDE 0.9% 1,000 ML IV STA (07:01)
[2020-07-22 08:51] LABS: BASOPHILS % (AUTO) 0.5 %; EOSINOPHILS # (AUTO) 0.2 10^3/uL (0.0-0.7); EOSINOPHILS % (AUTO) 4.2 %; HCT - HEMATOCRIT 47.3 % (42.0-52.0); HGB - HEMOGLOBIN 16.7 g/dL (14.0-18.0); LYMPHOCYTES # (AUTO) 1.4 10^3/uL (1.5-3.5); LYMPHOCYTES % (AUTO) 23.7 %; MEAN CORPUSCULAR HEMOGLOBIN 33.4 pg (27.0-31.0); MEAN CORPUSCULAR HGB CONC 35.3 g/dL (32.0-36.0); MEAN CORPUSCULAR VOLUME 94.6 fL (80.0-94.0); MEAN PLATELET VOLUME 11.7 fL (7.4-11.4); MONOCYTES # (AUTO) 0.6 10^3/uL (0.0-1.0); MONOCYTES % (AUTO) 9.8 %; NEUTROPHILS # (AUTO) 3.5 10^3/uL (1.5-6.6); NEUTROPHILS % (AUTO) 61.6 %; PLT - PLATELET COUNT 176 10^3/uL (130-450); RED CELL DISTRIBUTION WIDTH 11.7 % (12.0-15.0); WHITE BLOOD COUNT 5.7 x10^3/uL (4.8-10.8)
[2020-07-22 09:09] LABS: ALBUMIN 4.3 g/dL (3.2-5.5); ALBUMIN/GLOBULIN RATIO 1.3 (1.0-2.2); BILIRUBIN,TOTAL 0.8 mg/dL (0.2-1.0); CALCIUM 9.4 mg/dL (8.5-10.3); CREATININE 0.8 mg/dL (0.6-1.2); POTASSIUM 4.5 mmol/L (3.5-5.0); TOTAL PROTEIN 7.5 g/dL (6.7-8.2)
[2020-07-22] MEDS ORDERED: CHERRY SYRUP 10 ML UDC PO ONE (09:42)
[2020-07-22] MEDS ORDERED: KETOROLAC 60 MG/2 ML VIAL IM STA (09:42)
[2020-07-22] MEDS ORDERED: DEXAMETHASONE 10 MG/ML VIAL PO STA (09:42)
[2020-07-22 09:59] VITALS: BP 141/98
[2020-07-22 11:11] LABS: ESTIMATED AVERAGE GLUCOSE 111 mg/dL (70-100); HEMOGLOBIN A1c% 5.5 % (4.27-6.07)
== END 2020-07-22 10:05 | disposition home or self-care (01) ==
LOC: ED 06:21
DX: R51.9 Headache, unspecified (principal); E86.0 Dehydration; R35.8 Other polyuria; R63.1 Polydipsia; T80.89XA Other complications following infusion, transfusion and therapeutic injection, initial encounter; Y84.8 Other medical procedures as the cause of abnormal reaction of the patient, or of later complication, without mention of misadventure at the time of the procedure; Y92.238 Other place in hospital as the place of occurrence of the external cause
CPT/HCPCS: 36415; 80053; 83036; 83690; 85025; 96372; 99283; 99284; A9270

== ENCOUNTER 2020-08-10 16:33 | Outpatient (CLI) | payer OTHER ==
[2020-08-10 17:17] VITALS: BP 130/89
--- NOTE | 2020-08-10 17:17 | SLEEP CARE CONSULTATION ---
Information from patient questionnaire entered by Ja Nye. I have reviewed and concur with the information entered by Ja Nye. This document represents the service I personally performed and the decisions made by me, Krista Holland ARNP. History of Present Illness Service Date and Time: 08/10/2020 1633 Reason for Visit: New patient Chief Complaint: reports: Unrefreshed sleep, Snoring, Excessive daytime sleepiness, Observed pauses in breathing, Fatigue, Frequent awakenings at night Date of Onset: 20 years Usual bedtime: Between 8 PM - 10 PM Time it takes to fall asleep: Right away Snores at night: Yes Observed to quit breathing while asleep: Yes Sleeps alone due to snoring: Yes Number of times waking at night: A lot Reasons for waking at night: reports: Choking, Snoring, Gasping for air, Pain, Bathroom Toss, Turn, or Twitch while sleeping: Yes Recalls having dreams: No Usually gets out of bed at: 430, even on weekends Feels refreshed in the morning: No Morning headache: No Sleepy or fatigued during the day: Yes Ever fallen asleep while driving: Yes (drowsy driving but no accidents; he has developes ways to stay awake) Takes day naps: No Dreams during day naps: No Prior sleep studies: Yes Year and Where: 2003 [facility] Additional HPI information: I had the pleasure of seeing RUTH BAE today regarding the possibility of him having a sleep disorder. His current complaints are excessive daytime sleepiness, fatigue, frequent night awakenings, insomnia, observed pauses in breathing, snoring and unrefreshed sleep. He has had a sleep study in 2003 that was negative for sleep apnea. He is very tired during the day. He wakes up and feels like he needs air. He has had the feeling when laying on his back that there is a "flap" in the back of his throat that closes or obstructs over the back of his throat. He snores and has woken himself snoring. He has woken up feeling like he is choking and has had many complaints about his loud snoring. He has gained about 65-70 pounds since his last sleep study. He has had a varied work schedule since being in the [place] that he feels affects his sleep, too. 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 Patient is and lives in [place]. Have you smoked in the past 12 months: No Alcohol use: Yes Alcohol amount and frequency: 4 per day Caffeine use: Yes Caffeine amount and frequency: 1-2 daily Family History Family history of sleep disordered breathing: Yes Family Hx Sleep Apnea: Sibling: Snoring Allergies and Home Medications Drug allergies reviewed: Yes (meloxicam) Home medication list reviewed: Yes Allergy and home medication list: Claritin Motrin, prn Voltaren, topical Tramadol Review of Systems Weight gain over past 5 years: 25 Cardiovascular: denies: high blood pressure Gastrointestinal: denies: heartburn Neurological: denies: headaches Psychiatric: reports: Attention Deficit Hyperactivity Ear/Nose/Throat: reports: nasal congestion, dry mouth/throat, injury to nose. denies: tonsillectomy Endocrine: reports: sluggishness (tired) Musculoskeletal: reports: joint pain (stiffness), mobility problems Immunologic: reports: sneezing (runny nose) Physical Exam Blood Pressure: 130/89 Cuff size: wrist Heart Rate: 83 O2 Saturation: 97 Height: 5 ft 10 in Weight: 270 lb Body Mass Index: 38.7 BMI Classification: Obese Neck circumference: 17.8 (inches) Mouth and throat: narrow oropharynx Soft palate: long Hard palate: normal Uvula: edematous Uvula visualization: 50% Mallampati Class II Tongue: enlarged in size with teeth baca on lateral edges Tonsils: small Neck: normal w/o lymphadenopathy or thyromegaly Heart: regular rate and rhythm Lungs: clear bilaterally Impression and Plan 1. Suspected Obstructive Sleep Apnea-Hypopnea Syndrome, as suggested by a history of loud and irregular snoring, observed cessation of breath while as leep, gasping or choking in sleep, frequent awakening during the night, unrefreshed sleep, cognitive impairment, and excessive daytime sleepiness. Narrow oropharynx and obesity are common predisposing factors for obstructive sleep apnea-hypopnea syndrome. I recommend proceeding to polysomnography to confirm the diagnosis and to assess severity. If the patient has significant sleep disordered breathing, a manual CPAP titration study will also be performed to find the optimal treatment pressure. I informed the patient of what the sleep studies involve and after some discussion, obtained agreement to proceed. The pathophysiology of obstructive sleep apnea-hypopnea syndrome was discussed with the patient and health risks of cardiovascular and cerebrovascular disease if not treated. AAS brochure for obstructive sleep apnea-hypopnea syndrome given and reviewed. Risks of drowsy driving discussed in detail and patient advised to avoid long distance driving and to tub puller at the first sign of drowsiness. Patient agreed to plan. * Schedule polysomnography +- manual CPAP titration study and return in 1-2 weeks after the study to discuss result and initiate therapy. * Avoid long distance driving or driving when feeling sleepy. * Avoid alcohol, sedative and muscle relaxant around bedtime. * Attempt to lose weight. * Review instructions provided by trained office staff on how to prepare for the sleep study. * Return for follow-up after sleep study completed. Counseling Topics: Weight loss health impact Visit Type: In Office Time Spent with Patient (minutes): 31 Provider Statement: I spent 100% of the Face to Face Visit with the patient with greater than 50% spent counseling the patient and coordination of care.
== END 2020-08-10 16:34 | disposition home or self-care (01) ==
LOC: SC 16:33
PROVIDERS: ATTEND Nurse Practitioner Family
DX: G47.10 Hypersomnia, unspecified (principal); R06.83 Snoring; R06.81 Apnea, not elsewhere classified; G47.8 Other sleep disorders; R41.89 Other symptoms and signs involving cognitive functions and awareness; E66.9 Obesity, unspecified; Z68.38 Body mass index [BMI] 38.0-38.9, adult
CPT/HCPCS: 99203; 99212

== ENCOUNTER 2020-08-18 14:55 | Outpatient (CLI) | payer OTHER | END 2020-08-18 14:56 | disposition home or self-care (01) | LOC: SC 14:55 | PROVIDERS: ATTEND Nurse Practitioner Family | DX: G47.33 Obstructive sleep apnea (adult) (pediatric) (principal); R09.02 Hypoxemia; E66.9 Obesity, unspecified; Z68.38 Body mass index [BMI] 38.0-38.9, adult | CPT/HCPCS: 95806 ==

== ENCOUNTER 2020-08-24 15:43 | Outpatient (CLI) | payer OTHER ==
--- NOTE | 2020-08-24 16:14 | SLEEP CARE CONSULTATION ---
Information from patient questionnaire entered by Lu Keen. I have reviewed and concur with the information entered by Lu Keen. This document represents the service I personally performed and the decisions made by , Krista Holland ARNP. History of Present Illness Service Date and Time: 08/24/2020 1543 Initial [place] Sleepiness Scale score: 13 (in 2020) Current [place] Sleepiness Scale score: 20 Additional HPI information: RUTH BAE returns for follow up and results of the recently performed home sleep study. I explained the pathophysiology behind obstructive sleep apnea. We then spent quite a bit of time discussing different treatment options. For mild obstructive sleep apnea, surgery and oral appliance are alternatives to nasal CPAP therapy but in moderate or severe cases, nasal CPAP is the most effective and reliable treatment. Because apnea is primarily in supine position, then positional management therapy could be effective in mild cases. Methods discussed such as positioning with pillows to prevent supine sleep or sleep with head elevated. I reviewed the impact of weight changes on sleep apnea and strongly recommended losing weight. After some discussion, the patient opted to go with the nasal CPAP therapy. Nasal autoCPAP set at 4-15 cmH20 will be ordered with rationale explained. A manual titration study will be ordered if unable to find optimal pressure with office adjustments. I explained how CPAP machine works with sample devices [employer] and [employer] [id number] and what to expect when using the machine. Using CPAP every night in order to get used to it was emphasized. Patient advised to put CPAP mask on before getting into bed so as not to fall asleep without CPAP. To assist acclimation to CPAP use, it could also be used for a short time during day while reading or watching TV. The patient was instructed to call the CPAP supplier to discuss any mechanical problem that may occur. If the mask given is uncomfortable or is difficult to keep on through the night even with adjustment, contact the CPAP supplier as many will replace with another mask style if notified before 30 days. If snoring or perceives is not getting enough air or too much air from the machine, notify this office. AAS patient education PAP tips and Non Pap treatment pamphlets reviewed and given to patient. Patient counseled not drink alcohol less than 4 hours before bedtime as it can increase snoring and apnea. Patient was cautioned about risks of drowsy driving until sleepiness symptoms resolve. Sleep Study - Results Type of Sleep Study: Home sleep study Prior sleep studies: Yes Year and Where: 2003 - [place], [place] Polysomnography/Home Sleep Study results: Physician Impression: The quality of the study is good. The length of the study is adequate (> 240 minutes). Please also see the tabulated and graphic data. 1. Obstructive Sleep Apnea-Hypopnea (ICD-10 G47.33), very severe, with an AHI of 67.7/hr and wes SaO2 of 77%. During the study, the patient had 345 apneas (345 obstructive, 0 central, 0 mixed) and 110 hypopneas. The longest episode lasted 77.0 seconds. The respiratory events occurred slightly more frequently during supine sleep (supine AHI was 76.8 and non-supine, 29.46). 2. Hypoxemia (ICD-10 R09.02), moderate, with the lowest oxygen saturation of 77 % and 100.4 minutes with SaO2 under 90%. Baseline oxygen saturation was normal (Average oxygen saturation was 91%) Allergies and Home Medications Home medication list reviewed: Yes (no changes) Review of Systems Review of systems same as previous: Yes (no changes) Physical Exam Heart Rate: 72 O2 Saturation: 98 Height: 5 ft 10 in Weight: 272 lb Body Mass Index: 39.0 BMI Classification: Obese Impression and Plan 1. Obstructive Sleep Apnea-Hypopnea Syndrome, very severe, with lowest oxygen saturation of 77%. Obviously this is the cause of the patients symptoms of unrefreshed sleep, and excessive daytime sleepiness. Positive pressure therapy could benefit attention deficit. As mentioned above, the patient will be started on nasal autoCPAP therapy with pressure set at 4-15 cmH2O. A manual titration study will be completed if unable to find optimal treatment pressure with office adjustments. Compliance guidelines also reviewed. A copy of compliance guidelines will be given for reference at check out. Because the apnea is more severe supine, I instructed to avoid sleeping supine using pillow positioning until able to start CPAP use. Due to severity of sleep apnea, I would like to start him on therapy as soon as possible and will ask for urgent set up of his CPAP. 2. Hypoxemia, moderate, with the lowest oxygen saturation of 77 % and 100.4 minutes with SaO2 under 90%. His baseline oxygen saturation was normal with an average oxygen saturation of 91%. * Nasal auto CPAP therapy, pressure at 4-15 cm H2O. * Attempt to lose weight. * Avoid alcohol consumption near bedtime. * Avoid supine sleep until using CPAP. * The patient is again cautioned about driving until sleepiness completely resolves. * Return one month after CPAP obtained. I will assess response to therapy and compliance at that time. Counseling Topics: Weight loss health impact Visit Type: In Office Time Spent with Patient (minutes): 20 Provider Statement: I spent 100% of the Face to Face Visit with the patient with greater than 50% spent counseling the patient and coordination of care.
== END 2020-08-24 15:44 | disposition home or self-care (01) ==
LOC: SC 15:43
PROVIDERS: ATTEND Nurse Practitioner Family
DX: G47.33 Obstructive sleep apnea (adult) (pediatric) (principal); E66.9 Obesity, unspecified; Z68.39 Body mass index [BMI] 39.0-39.9, adult
CPT/HCPCS: 99212; 99213

== ENCOUNTER 2020-10-20 15:40 | Outpatient (CLI) | payer OTHER ==
--- NOTE | 2020-10-20 16:11 | SLEEP CARE CONSULTATION ---
Information from patient questionnaire entered by Ja Nye. I have reviewed and concur with the information entered by Ja Nye. This document represents the service I personally performed and the decisions made by me, Krista Holland ARNP. History of Present Illness Service Date and Time: 10/20/2020 1540 Previous diagnosis: Very Severe, Obstructive Sleep Apnea-Hypopnea Syndrome AHI: 67.7 ((in 2020) Reason for follow up: first compliance (Set up 09/02) Accompanied by: Spouse Equipment obtained from: Other ([facility]; got initial supplies, working well with him) Mask style: Full face Backup mask available: No (will keep old mask when replaced) Last cushion change: 1 month Prior sleep studies: Yes [facility] and Where: [facility] and [facility] - [place] Type of Sleep Study: Home sleep study HPI additional information: RUTH BAE was diagnosed to have very severe, AHI 67.7, obstructive sleep apnea-hypopnea syndrome and returned today with his spouse for CPAP therapy first compliance follow-up. CPAP Compliance Data - Data Reviewed with Patient Average duration of nightly device use: 5 h 49 min Compliance rate %: 83 Current pressure setting (cmH2O): 10-15 Average residual AHI: 3.0 Subjective Patient concerns: reports: mask discomfort, dry mouth, nose, throat (dry mouth). denies: aerophagia, air blowing in eyes, mask leak noise, condensation in mask/hose, nasal congestion, epistaxis, other Observed to snore while using device: Yes (sometimes at night onset per ) Current pressure setting perceived as: comfortable On therapy, patient: reports: sleeping better, awakening more refreshed, being more awake and alert during the day, more rested overall. denies: drowsiness while driving Initial [place] Sleepiness Scale score: 13 (in 2020) Current [place] Sleepiness Scale score: 10 Allergies and Home Medications Home medication list reviewed: Yes (Heather) Review of Systems Review of systems same as previous: Yes (no changes) Physical Exam Heart Rate: 88 O2 Saturation: 96 Height: 5 ft 10 in Weight: 269 lb Body Mass Index: 38.5 BMI Classification: Obese Impression and Plan 1. Obstructive Sleep Apnea-Hypopnea Syndrome, very severe, with good treatment compliance and good apnea control. On CPAP therapy, the patient has better sleep quality and is more rested overall. He likes his full face mask but thinks he would do better in a larger size. He went down to the [employer] and they measured him, they told him the medium should fit but he still would like a larger size. He states when he is eligible for more mask they are going to send him a different style of full face mask that hopefully will fit better. He is overall satisfied with current pressure setting and treatment results. I will have him follow up in 3 months. I will make no pressure changes today. He was encouraged to try to lose weight. Patient's apnea severity and rationale for treatment to reduce apnea, improve sleep quality and reduce cardiovascular and cerebrovascular events was reviewed. I also reviewed the benefit of consistent device use of CPAP for attention deficit. * Continue auto CPAP pressure at 10-15 cmH2O * Notify me if snoring with mask or feeling that the pressure is too much or too little * Attempt to lose weight * Call this office if any problems using CPAP * Return for follow up in 3 months, or sooner if concerns arise Counseling Topics: Spare mask, Weight loss health impact Visit Type: In Office Time Spent with Patient (minutes): 21 Provider Statement: I spent 100% of the Face to Face Visit with the patient with greater than 50% spent counseling the patient and coordination of care.
== END 2020-10-20 15:41 | disposition home or self-care (01) ==
LOC: SC 15:40
PROVIDERS: ATTEND Nurse Practitioner Family
DX: G47.33 Obstructive sleep apnea (adult) (pediatric) (principal); E66.9 Obesity, unspecified; Z68.38 Body mass index [BMI] 38.0-38.9, adult
CPT/HCPCS: 99212; 99213

== ENCOUNTER 2021-01-21 15:50 | Outpatient (CLI) | payer OTHER ==
--- NOTE | 2021-01-21 16:26 | SLEEP CARE CONSULTATION ---
Information from patient questionnaire entered by Ja Nye. I have reviewed and concur with the information entered by Ja Nye. This document represents the service I personally performed and the decisions made by me, Krista Holland ARNP. History of Present Illness Service Date and Time: 01/21/2021 1550 Previous diagnosis: Very Severe, Obstructive Sleep Apnea-Hypopnea Syndrome AHI: 67.7 Reason for follow up: three month Equipment type: CPAP Equipment obtained from: Other ([facility]; getting supplies as needed) Mask style: Full face Mask brand: [employer] (Dreamwear) Backup mask available: Yes (other mask) Last cushion change: 4 months Prior sleep studies: Yes Year and Where: 2020 [facility], 2003 - [place], [place] Type of Sleep Study: Home sleep study HPI additional information: RUTH BAE was diagnosed to have very severe, AHI 67.7, obstructive sleep apnea-hypopnea syndrome and returned today for CPAP therapy three month follow- up. CPAP Compliance Data - Data Reviewed with Patient Average duration of nightly device use: 5 h 30 min Compliance rate %: 81 Current pressure setting (cmH2O): 10-15 Average residual AHI: 3.9 Subjective Missed days of use due to: reports: other (Taken off without knowing) Patient concerns: reports: mask discomfort (medium mask riding up on chin), mask leak noise, other (Seems too small (mask) breathing hole for nose restrictive). denies: aerophagia, air blowing in eyes, condensation in mask/hose, nasal congestion, dry mouth, nose, throat, epistaxis Observed to snore while using device: No Current pressure setting perceived as: comfortable On therapy, patient: reports: sleeping better, awakening more refreshed, being more awake and alert during the day, more rested overall. denies: drowsiness while driving Initial [place] Sleepiness Scale score: 13 (in 2020) Current [place] Sleepiness Scale score: 3 Allergies and Home Medications Home medication list reviewed: Yes (new meds) Allergy and home medication list: Concerta Cymbalta Gabapentin Review of Systems Review of systems same as previous: Yes (no changes) Physical Exam Heart Rate: 75 O2 Saturation: 98 Height: 5 ft 10 in Weight: 272 lb Body Mass Index: 39.0 BMI Classification: Obese Impression and Plan 1. Obstructive Sleep Apnea-Hypopnea Syndrome, very severe, with good treatment compliance and good apnea control. On CPAP therapy, the patient has better sleep quality and is more rested overall. He states he has not been falling asleep when driving. He is not falling asleep when talking to people at work and when at the computer at work. Patient is very satisfied with CPAP therapy and has significant improvement of his sleep apnea. He does have issues with mask fit. He has been using the same mask for about 4 months. He was advised to change the mask more often. He also feels the medium mask is too small and just got a larger mask. He will switch it out tonight and see is this larger mask will fit better. If not, we discussed changing to a nasal pillows mask with a chinstrap to keep mouth closed. He will try the larger mask first and see how it goes. Patient's apnea severity and rationale for treatment to reduce apnea, improve sleep quality and reduce cardiovascular and cerebrovascular events was reviewed. I also reviewed the benefit of consistent device use of CPAP for ADD. Patient was encouraged to lose weight for their overall health and to reduce apneas. * Continue auto CPAP pressure at 10-15 cmH2O * Notify me if snoring with mask or feeling that the pressure is too much or too little * Attempt to lose weight * Call this office if any problems using CPAP * Return for follow up in 6 months, or sooner if concerns arise Counseling Topics: Spare mask, Weight loss health impact Visit Type: In Office Time Spent with Patient (minutes): 22 Provider Statement: I spent 100% of the Face to Face Visit with the patient with greater than 50% spent counseling the patient and coordination of care.
== END 2021-01-21 15:51 | disposition home or self-care (01) ==
LOC: SC 15:50
PROVIDERS: ATTEND Nurse Practitioner Family
DX: G47.33 Obstructive sleep apnea (adult) (pediatric) (principal); E66.9 Obesity, unspecified; Z68.39 Body mass index [BMI] 39.0-39.9, adult
CPT/HCPCS: 99212; 99213

== ENCOUNTER 2021-06-21 13:14 | Emergency (ER) | payer OTHER ==
--- NOTE | 2021-06-21 14:20 | XRAY Report ---
PROCEDURE: Knee 4 View LT INDICATIONS: Trauma TECHNIQUE: AP, oblique, lateral, and sunrise views of the left knee. COMPARISON: None. FINDINGS: Bones: No acute fractures or dislocations. Osseous protuberance at the lateral distal femoral metaph ysis is most likely a small osteochondroma. Soft tissues: Small joint effusion. No suspicious soft tissue calcifications. IMPRESSION: 1.No acute osseous abnormality. If there is clinical concern or persistent symptoms, additional imagi ng such as repeat radiographs or advanced imaging (e.g. CT, MRI) may be helpful for further evaluatio n. 2.Small osteochondroma at the lateral femoral metaphysis. Reviewed by: Eligio York MD on 06/21/2021 2:18 PM PDT Approved by: Eligio York MD on 06/21/2021 2:18 PM PDT Station ID: [id number]
--- NOTE | 2021-06-21 15:21 | ED Physician Documentation ---
History of Present Illness - Stated complaint Stated Complaint: L KNEE PX - Chief complaint Chief Complaint: Ext Problem - History obtained from History obtained from: Patient - History of Present Illness Timing: How many weeks ago (several weeks) Pain level max: 7 Pain level now: 6 - Additonal information Additional information: Patient is a 51-year-old male who presents to the emergency department left knee pain. He states that he has a longstanding history of right knee pain. Has had a right knee arthroscopy. Has had left knee pain now for several months. He states that he has received injections in that knee which has helped in the past. He is scheduled to see orthopedics in 2 to 3 weeks. No new injury. Worse with movement, better with rest. Review of Systems Constitutional: denies: Fever, Chills GI: denies: Vomiting, Diarrhea Skin: denies: Rash Musculoskeletal: denies: Neck pain, Back pain Neurologic: denies: Headache PD PAST MEDICAL HISTORY - Past Medical History Cardiovascular: None Respiratory: Sleep apnea Endocrine/Autoimmune: None GI: GERD, Other : None HEENT: None Psych: None Musculoskeletal: Other Derm: None - Past Surgical History Past Surgical History: Yes Ortho: Knee replacement - Present Medications Home Medications: Ambulatory Orders Medication Instructions Recorded Confirmed Ibuprofen 600 mg PO TID #15 tablet 02/16/15 07/22/20 Cetirizine [ZyrTEC] 10 mg PO DAILY #15 tab 04/20/20 07/22/20 HYDROcod/ACETAM 5/325 [[place] 5/325] 1 ea PO Q6H PRN #18 tab 04/20/20 07/22/20 traMADol [Ultram] 100 mg PO Q6H 04/20/20 07/22/20 HYDROcod/ACETAM 5/325 [[place] 5/325] 1 - 2 ea PO Q6H PRN #14 tablet 06/21/21 Lidocaine/Prilocain 2.5% Cream 1 applic TP BID PRN #30 gm 06/21/21 [Emla 2.5% Cream] - Allergies Allergies/Adverse Reactions: Allergies Allergy/AdvReac Type Severity Reaction Status Date / Time meloxicam [From Mobic] AdvReac Intermediate Unknown Verified 07/22/20 06:46 - Social History Does the pt smoke?: No Smoking Status: Never smoker Does the pt drink ETOH?: No Does the pt have substance abuse?: No - Immunizations Immunizations are current?: Yes - POLST Patient has POLST: No PD ED PE NORMAL - Vitals Vital signs reviewed: Yes - General General: Alert and oriented X 3, No acute distress - HEENT HEENT: Moist mucous membranes - Neck Neck: Supple, no meningeal sign - Derm Derm: Warm and dry - Extremities Extremities: Other (Left knee - Mild tenderness on the medial aspect of the left knee. Along the tibial plateau. ACL, MCL, PCL, LCL are intact. Unable to tolerate meniscus testing. No joint effusion. Neurovascularly intact) - Neuro Neuro: Alert and oriented X 3 - Psych Psych: Normal mood, Normal affect Results - Vitals Vitals: Vital Signs - 24 hr 06/21/21 06/21/21 13:26 15:37 Temperature 36.8 C 36.8 C Heart Rate 78 77 Respiratory 18 20 Rate Blood Pressure 162/96 H 160/100 H O2 Saturation 97 99 Oxygen O2 Source Room air - Rads (name of study) Left knee x-ray Radiology: Final report received, EMP read contemporaneously, See rad report (No acute abnormality) PD MEDICAL DECISION MAKING - ED course Complexity details: reviewed results, considered differential, d/w patient ED course: 51-year-old male with left knee pain, ongoing for several months. Will place on pain medication for home. We will have him follow-up with orthopedics for further care. He has crutches and a knee brace at home. Patient may benefit from joint injections with orthopedics. Patient likely has a meniscus injury as well. Patient counseled regarding signs and symptoms for which I believe and urgent re-evaluation would be necessary. Patient with good understanding of and agreement to plan and is comfortable going home at this time This document was made in part using voice recognition software. While efforts are made to proofread this document, sound alike and grammatical errors may occur. Departure - Departure Disposition: 01 Home, Self Care Clinical Impression: Knee pain, left Qualifiers: Chronicity: acute Qualified Code(s): M25.562 - Pain in left knee Condition: Good Instructions: ED Meniscal Injury Knee Poss Follow-Up: [facility] [Provider Group] - Within 1 week Prescriptions: Lidocaine/Prilocain 2.5% Cream [Emla 2.5% Cream] 1 applic TP BID PRN #30 gm PRN Reason: knee pain HYDROcod/ACETAM 5/325 [[place] 5/325] 1 - 2 ea PO Q6H PRN #14 tablet PRN Reason: Pain Comments: your prescriptions were sent to [facility] [place]. Use the medications as prescribed. Follow-up with your doctor for further care. I would recommend that you call orthopedics to see if they can fit you in for a joint injection. I am prescribing a short course of narcotic pain medication for you. These are potentially dangerous and addictive medications that should be used carefully. These medications may constipate you. Take an [id number] stool softener (docusate) twice daily with plenty of water while taking these medications. If you go 24 hours without a bowel movement, take [id number] miralax, per package instructions. Do not drink or drive while taking these medications. If you received narcotic or sedating medications while in the emergency department, do not drive for 24 hours. Store this medication in a safe, secure place and out of reach of children. It is a violation of federal law to give or sell this medication to another person or to use in a manner other than prescribed. The ED will not refill narcotic prescriptions, including prescriptions lost or stolen. To dispose of unwanted medications: 1. [facility] [address] in [place] has a medication drop box. They accept prescription medications (in pill form) Sunday through Sunday 9:00 a.m. to 5:00 p.m. 2. The [facility] [employer] accepts prescription medications (in pill form only) for disposal year round. Call for more information. 3. Contact the [facility] for the next [facility] sponsored prescription drug collection event. , [phone], or [phone]; Discharge Date/Time: 06/21/21 15:34
[2021-06-21 15:39] VITALS: BP 160/100
== END 2021-06-21 15:34 | disposition home or self-care (01) ==
LOC: ED 13:14
DX: M25.562 Pain in left knee (principal)
CPT/HCPCS: 99282; 99283

== ENCOUNTER 2021-08-02 10:43 | Outpatient (CLI) | payer OTHER ==
--- NOTE | 2021-08-02 15:47 | MRI Report ---
PROCEDURE: Knee LT W/O INDICATIONS: PAIN IN KNEE TECHNIQUE: Noncontrast sagittal PD fast spin echo and T2 fast spin echo with fat saturation, sagittal 3-D gradie nt sequence with fat saturation; coronal T1 spin echo and PD fast spin echo with fat saturation, and axial PD fast spin echo with fat saturation through the knee. COMPARISON: None. FINDINGS: Image quality: Excellent. Menisci: Oblique tear involving posterior horn of medial meniscus is seen extending to superior artic ulating surface. There is no focal lateral meniscal tear. The meniscal root ligaments appear intact. Cruciate ligaments: The anterior and posterior cruciate ligaments appear intact. Medial structures: Low-grade MCL sprain is seen. The posterior oblique ligament, semimembranosus ten don insertions, and oblique popliteal ligament, and meniscocapsular junction appear intact. Visualiz ed portions of the pes anserinus tendons appear normal. No abnormal bursal fluid. Lateral structures: The lateral collateral ligament, long and short heads of the biceps femoris tend on appear intact. The popliteus tendon appears normal; the popliteofibular ligament appears intact. The posterosuperior and anteroinferior popliteomeniscal fascicles appear intact. The arcuate and fa bellofibular ligaments appear intact, around the lateral inferior geniculate artery. Iliotibial band appears normal. Anterior structures: The quadriceps and patellar tendons appear intact. Patellar alignment is gayathri l. No femoral trochlear dysplasia or ventral trochlear prominence. No edema in the infrapatellar fa t pad. Bones and cartilage: No bone marrow contusions or fractures. Mild tricompartmental osteoarthritis an d low-grade chondromalacia is seen more prominent in medial femoral tibial compartment. Joint space: There is small knee joint fluid. No Bell's cyst. Normal appearing synovial plicae ar e incidentally noted. IMPRESSION: 1. Oblique tear involving posterior horn of medial meniscus extending to superior articulating surfac e. No focal lateral meniscal tear. 2. Cruciate ligaments are intact. Low-grade MCL sprain. 3. 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 No fracture or dislocation. Small joint effusion. Reviewed by: Houston Aquino MD on 08/02/2021 3:46 PM PDT Approved by: Houston Aquino MD on 08/02/2021 3:46 PM PDT Station ID: [id number]
== END 2021-08-02 10:44 | disposition home or self-care (01) ==
LOC: DI 10:43
PROVIDERS: ATTEND Family Medicine
DX: S83.242A Other tear of medial meniscus, current injury, left knee, initial encounter (principal); S83.412A Sprain of medial collateral ligament of left knee, initial encounter; M17.12 Unilateral primary osteoarthritis, left knee; M25.462 Effusion, left knee